=== PATIENT | male | born 1965 | race Caucasian/White ===

== ENCOUNTER 2016-05-17 11:42 | Emergency (ER) | payer SELFPAY ==
[~2016-05-17] VITALS: Ht 172.7 cm; Wt 95.0 kg
[~2016-05-17 11:42] MED LIST: FLEXERIL PO; PERCOCET 5/325M1 TAB PO
[2016-05-17 13:10] VITALS: BP 153/96
== END 2016-05-17 13:12 | disposition home or self-care (01) | DRG 561 ==
LOC: ED 11:42
DX: S42.201D Unspecified fracture of upper end of right humerus, subsequent encounter for fracture with routine healing (principal); M25.512 Pain in left shoulder